=== PATIENT | female | born 1950 | race Caucasian/White ===

== ENCOUNTER 2017-10-16 07:30 | Day surgery (SDC) | payer MEDICARE, OTHER ==
[~2017-10-16] VITALS: Ht 152.4 cm; Wt 49.8 kg
[~2017-10-16 07:30] MED LIST: ALPR.5 PO; CYCL10; L-THYROXINE PO; NAPR500 PO
== END 2017-10-16 10:27 | disposition home or self-care (01) ==
LOC: ORSCSDS 07:30
PROVIDERS: Student in an Organized Health Care Education/Training Program
PROC: 0DB68ZX Excision of Stomach, Via Natural or Artificial Opening Endoscopic, Diagnostic (ICD-10-PCS; principal; 2017-10-16 08:45)
PROC: 0DB58ZX Excision of Esophagus, Via Natural or Artificial Opening Endoscopic, Diagnostic (ICD-10-PCS; principal; 2017-10-16 08:45)
DX: K21.0 Gastro-esophageal reflux disease with esophagitis (principal); K29.70 Gastritis, unspecified, without bleeding; K44.9 Diaphragmatic hernia without obstruction or gangrene; E03.9 Hypothyroidism, unspecified; E78.5 Hyperlipidemia, unspecified; I10 Essential (primary) hypertension; F41.9 Anxiety disorder, unspecified; Z79.899 Other long term (current) drug therapy
CPT/HCPCS: 88305; 88312; 88342; 93005; 93010; J0330; J1980; J2405; J7120

== ENCOUNTER → 2018-11-23 | Outpatient (CLI) | payer MEDICARE, OTHER | END | disposition home or self-care (01) | LOC: LAB EV 13:30 → LAB SHORT 13:30 | DX: N39.0 Urinary tract infection, site not specified (principal) | CPT/HCPCS: 87086; 87147 ==

== ENCOUNTER 2019-01-03 12:46 | Day surgery (SDC) | payer MEDICARE, OTHER ==
[~2019-01-03] VITALS: Ht 152.4 cm; Wt 45.4 kg
[~2019-01-03 12:46] MED LIST changes: -CYCL10; +CYCL10 PO; +EUTHYROX100 MCG PO
[2019-01-03] MEDS ORDERED: MELATONIN5 M1 PO (13:12)
== END 2019-01-03 16:39 | disposition home or self-care (01) ==
LOC: ORSCSDS 12:46
PROVIDERS: Podiatrist
PROC: 0QBP0ZZ Excision of Left Metatarsal, Open Approach (ICD-10-PCS; principal; 2019-01-03 14:15)
PROC: 0QBR0ZZ Excision of Left Toe Phalanx, Open Approach (ICD-10-PCS; principal; 2019-01-03 14:15)
DX: M20.5X2 Other deformities of toe(s) (acquired), left foot (principal); E03.9 Hypothyroidism, unspecified; K21.9 Gastro-esophageal reflux disease without esophagitis; Z79.899 Other long term (current) drug therapy
CPT/HCPCS: J1100; J2001; J2250; J2405; J2704; J3010; J7120

== ENCOUNTER → 2019-08-06 | Outpatient (CLI) | payer MEDICARE, OTHER ==
[~2019-08-06] MED LIST changes: +MELATONIN5 M1 PO
== END | disposition home or self-care (01) ==
LOC: LAB SHORT 07:36 → PLD 07:36
DX: C44.41 Basal cell carcinoma of skin of scalp and neck (principal)
CPT/HCPCS: 88305

== ENCOUNTER → 2019-11-11 | Outpatient (CLI) | payer MEDICARE, OTHER | END | disposition home or self-care (01) | LOC: LAB SHORT 14:51 → PLD 14:51 | DX: D48.5 Neoplasm of uncertain behavior of skin (principal) | CPT/HCPCS: 88305 ==

== ENCOUNTER 2020-11-24 12:24 | Day surgery (SDC) | payer MEDICARE, OTHER ==
[~2020-11-24] VITALS: Ht 152.4 cm; Wt 55.7 kg
== END 2020-11-24 15:06 | disposition home or self-care (01) ==
LOC: ORSCSDS 12:24
PROVIDERS: Student in an Organized Health Care Education/Training Program
PROC: 0DBK8ZX Excision of Ascending Colon, Via Natural or Artificial Opening Endoscopic, Diagnostic (ICD-10-PCS; principal; 2020-11-24 12:45)
PROC: 0DBM8ZX Excision of Descending Colon, Via Natural or Artificial Opening Endoscopic, Diagnostic (ICD-10-PCS; principal; 2020-11-24 12:45)
PROC: 0DBP8ZX Excision of Rectum, Via Natural or Artificial Opening Endoscopic, Diagnostic (ICD-10-PCS; principal; 2020-11-24 12:45)
PROC: 0DB58ZX Excision of Esophagus, Via Natural or Artificial Opening Endoscopic, Diagnostic (ICD-10-PCS; principal; 2020-11-24 12:45)
PROC: 0DBL8ZX Excision of Transverse Colon, Via Natural or Artificial Opening Endoscopic, Diagnostic (ICD-10-PCS; principal; 2020-11-24 12:45)
DX: K21.9 Gastro-esophageal reflux disease without esophagitis (principal); Z12.11 Encounter for screening for malignant neoplasm of colon; Z86.010 Personal history of colon polyps; K63.5 Polyp of colon; K62.1 Rectal polyp; D12.2 Benign neoplasm of ascending colon; K20.90 Esophagitis, unspecified without bleeding; E78.5 Hyperlipidemia, unspecified; E03.9 Hypothyroidism, unspecified; I73.00 Raynaud's syndrome without gangrene; F41.9 Anxiety disorder, unspecified; K44.9 Diaphragmatic hernia without obstruction or gangrene; K64.4 Residual hemorrhoidal skin tags; Z79.899 Other long term (current) drug therapy
CPT/HCPCS: 88305; J2704; J7120

== ENCOUNTER → 2022-08-22 | Outpatient (CLI) | payer MEDICARE, OTHER | END | disposition home or self-care (01) | LOC: LAB SHORT 07:54 → PLD 07:54 | DX: D48.5 Neoplasm of uncertain behavior of skin (principal) | CPT/HCPCS: 88305 ==

== ENCOUNTER 2024-06-12 10:22 | Day surgery (SDC) | payer MEDICARE, OTHER ==
[~2024-06-12] VITALS: Ht 152.4 cm; Wt 49.8 kg
[~2024-06-12 10:22] MED LIST changes: +Lactated Ringer's 1,000 ML IV ONE; +propofoL 50 ML IV ONE
[2024-06-12] MEDS ORDERED: ATORVASTATIN CA20 MG (11:14)
[2024-06-12] MEDS ORDERED: OMEP20ER (11:16)
[2024-06-12] MEDS ORDERED: SEMAGLUTID1 MG/0.2 M (11:18)
[2024-06-12] MEDS ORDERED: Lactated Ringer's 1,000 ML IV ONE (13:10)
--- NOTE | 2024-06-12 13:28 | NUR ---
06/12/24 1328 Myron Lopez DELAYED START TIME R/T ECG ISSUES READING CORRECTLY. CALLED FACUNDO CHA TO HELP FIX ISSUES.
[2024-06-12] MEDS ORDERED: propofoL 50 ML IV ONE (14:04)
[2024-06-12 15:09] VITALS: BP 141/86
== END 2024-06-12 15:05 | disposition home or self-care (01) ==
LOC: ORSCSDS 10:22
PROVIDERS: Internal Medicine Gastroenterology
PROC: 0DB78ZX Excision of Stomach, Pylorus, Via Natural or Artificial Opening Endoscopic, Diagnostic (ICD-10-PCS; principal; 2024-06-12 11:45)
PROC: 0DB98ZX Excision of Duodenum, Via Natural or Artificial Opening Endoscopic, Diagnostic (ICD-10-PCS; principal; 2024-06-12 11:45)
PROC: 0DJD8ZZ Inspection of Lower Intestinal Tract, Via Natural or Artificial Opening Endoscopic (ICD-10-PCS; principal; 2024-06-12 11:45)
DX: K21.9 Gastro-esophageal reflux disease without esophagitis (principal); R19.4 Change in bowel habit; R11.0 Nausea; Z86.0101 Personal history of adenomatous and serrated colon polyps; K31.7 Polyp of stomach and duodenum; Z98.84 Bariatric surgery status; E78.5 Hyperlipidemia, unspecified; I73.00 Raynaud's syndrome without gangrene; E03.9 Hypothyroidism, unspecified; Z79.899 Other long term (current) drug therapy
CPT/HCPCS: 82947; 88305; 88342; J2704; J7120